=== PATIENT | male | born 1955 | race Caucasian/White ===

== ENCOUNTER 2025-06-28 17:40 | Emergency (ER) | payer BC, SELFPAY ==
[2025-06-28 17:52] VITALS: BP 138/85
[2025-06-28 18:30] LABS: Hematocrit 48.1 % (39.0-52.0); Hemoglobin 15.7 g/dL (13.0-18.0); Mean Corp Hgb Conc. 32.6 g/dL (33.0-37.0); Mean Corpuscular Volume 92.3 fL (80.0-94.0); Nucleated Red Blood Cells % 0 % (-); Platelet Count 142 10^3/uL (130-400); Red Cell Dist. Width 14.4 % (11.5-14.5)
[2025-06-28 18:48] LABS: ALT (SGPT) 23 U/L (0-50); AST (SGOT) 29 U/L (17-59); Albumin 3.9 g/dl (3.5-5.0); Alkaline Phosphatase 83 U/L (38-126); Blood Urea Nitrogen 24 mg/dl (9-20); Calcium 9.2 mg/dl (8.4-10.2); Carbon Dioxide 22 mmol/L (22-30); Chloride 103 mmol/L (98-107); Glucose 115 mg/dl (70-99); Potassium 4.3 mmol/L (3.5-5.1); Sodium 135 mmol/L (135-145); Total Protein 6.3 g/dl (6.3-8.2); eGFR 58.73
[2025-06-28 18:52] LABS: COVID-19 Antigen Negative (Negative)
[2025-06-28 19:58] VITALS: BP 145/84
[2025-06-28 20:00] VITALS: BP 139/71
[2025-06-28] MEDS: DUONEB 3 ML INH (20:32)
[2025-06-28] MEDS: DECADRON 10 MG PO (20:32)
[2025-06-28 21:00] VITALS: BP 135/76
--- NOTE | 2025-06-28 21:35 | ED.GENMED ---
History of Present Illness
General
Chief Complaint: Cough
Source: patient
Exam Limitations: none
Time Seen by Provider: 06/28/25 20:10
Nursing documentation reviewed up to this point in time: agreed with
History of Present Illness
History of Present Illness:
69-year-old male past medical history of hypertension diabetes presenting to the emergency department today with concerns of cough chills some shortness of breath over the past 3 days. Has had some nasal congestion as well. Denies any nausea
vomiting diarrhea. No chest pain. No ongoing shortness of breath.
Past History
Past History
ED Past Medical History: HTN, Hypercholesterolemia and NIDDM
ED Past Surgical History: None
Social History
Tobacco: Smoker
Review of Systems
Review of Systems
Allergies reviewed?: Yes
All Other Systems: ROS reviewed and negative except as documented in HPI and ROS
Phy Exam
Physical Exam
Physical Exam:
GENERAL: Alert , in no apparent distress
EYE: pupils equal and reactive
NECK: Supple, no significant adenopathy.
ENT: o/p clr, mmm.
CARDIAC: Regular rate and rhythm .
LUNGS: Expiratory wheeze diffusely
ABDOMEN: Soft, without focal tenderness, no r/g, no cvat
NEUROLOGICAL: Alert and oriented, no focal neuro deficits
SKIN: Warm and dry, skin intact.
MUSCULOSKELETAL: No edema, well perfused.
PSYCH: Normal and appropriate interaction.
Course
Orders/Labs/Results
Orders:
Orders
06/28/25 17:56
Electrocardiogram (*1) Urgent
Reason for Study: Other
Other Reason for Exam: Respiratory Distress
EKG- Treatment ONCE
CR Chest - 2 Views Urgent
Comment:
Reason For Exam: respiratory distress
06/28/25 18:18
COVID-19 Antigen Urgent
Source: Nasal Swab
Complete Blood Count/With Diff Urgent
Comprehensive Metabolic Panel Urgent
Influenza A+B Rapid Molecular Urgent
[facility]IZABETH Source: Nasal Swab
Specimen Description:
06/28/25 20:24
Dexamethasone [Decadron] 10 mg PO NOW STA
Ipratropium/Albuterol Sulfate [Duoneb] 3 ml INH R NOW ONE
Abnormal Lab Results
06/28/25
18:18
MCHC 32.6 L g/dL
(33.0-37.0)
MPV 10.5 H fL
(7.4-10.4)
Absolute Neuts (auto) 7.5 H 10^3/uL
(1.4-6.5)
Absolute Lymphs (auto) 0.5 L 10^3/uL
(1.2-3.4)
Absolute Monos (auto) 1.2 H 10^3/uL
(0.1-0.6)
Neutrophils % 80.3 H %
(42.2-75.2)
Lymphocytes % 5.3 L %
(20.5-51.1)
Monocytes % 13.2 H %
(1.7-9.3)
BUN 24 H mg/dl
(9-20)
Glucose 115 H mg/dl
(70-99)
Total Bilirubin 2.1 H mg/dl
(0.2-1.3)
06/28/25 18:18
06/28/25 18:18
Vital Signs
Initial and Last Documented VS:
Initial Vital Signs
Temp Pulse Resp BP Pulse Ox
99.7 F 120 20 138/85 95
06/28/25 17:52 06/28/25 17:52 06/28/25 17:52 06/28/25 17:52 06/28/25 17:52
Last Documented Vital Signs
Temp Pulse Resp BP Pulse Ox
99.7 F 104 16 135/76 92
06/28/25 17:52 06/28/25 21:30 06/28/25 21:30 06/28/25 21:00 06/28/25 21:37
MDM/Problems Addressed
MDM/Problems Addressed:
69-year-old male presenting to the emergency department today with concerns of cough and chills subjective fever at home over the past 2 days or so. On arrival mildly tachycardic low-grade temp. Heart rate improved without specific treatment heart
rate in the 90s during my assessment. Pulse ox in the mid 90s. Labs obtained without significant white count no emergent findings on labs. Chest x-ray without signs of pneumonia or acute abnormalities. EKG normal. Patient was given steroid as
well as inhaler with improvement symptom. He was walked in the department with pulse ox staying to the mid to high 90s. X-ray without evidence of pneumonia. Appears stable for discharge at this time.
*Pulse Oximetry
SaO2: 92
Oxygen Mode of Delivery: Room air
Patient hypoxic: no (94)
*Critical Care Note
Total Time (30-74mins, 75-104mins- exclusive of procedures): Not Applicable
ED Attending Note
-
Portions of this chart may have been created with voice recognition software.� Occasional wrong word or��sound alike� substitutions may have occurred due to the inherent limitations of voice recognition software.
Discharge Plan
Departure
Patient Disposition: Home (Routine Discharge)
Date of Disposition: 06/28/25
Time of Disposition: 21:55
Patient with high blood pressure during this ER visit?: No
Condition: Good
Covid-19: Not Applicable
Discharge Problem:
Acute bronchitis, Wheeze
Instructions: Viral Upper Respiratory Infection, Adult (DC)
Prescriptions:
New
prednisone 20 mg tablet
40 mg PO DAILY 4 Days Qty: 8 0RF
No Action
atorvastatin 10 MG tablet
10 mg PO DAILY
aspirin [Ecotrin Low Strength] 81 MG tablet,delayed release (DR/EC)
81 mg PO DAILY
coenzyme Q10 [Co Q-10] 30 MG capsule
30 mg PO DAILY
cholecalciferol (vitamin D3) [Vitamin D3] 1,000 UNIT capsule
1,000 unit PO DAILY
amlodipine-benazepril 1 CAPSULE capsule
1 cap PO DAILY
zoster vaccine live (PF) [Zostavax (PF)] 19,400 UNIT/0.65 ML suspension for reconstitution
19,400 unit SQ DAILY
sitagliptin phos-metformin [Janumet XR] 1 EACH tablet, ER multiphase 24 hr
1 ea PO BID
dulaglutide [Trulicity] 1.5 MG/0.5 ML pen injector
1.5 mg SQ DAILY
methylprednisolone [Medrol (Uriel)] 4 MG tablets,dose pack
4 tab PO . DIRECT Qty: 1 0RF
oxycodone-acetaminophen 5 MG/325 MG tablet
1 tab PO Q4HPRN PRN (Reason: pain) Qty: 8 0RF
Activity Restrictions/Additional Instructions:
You came to the emergency department today with concerns of upper respiratory symptoms. Here he had a reassuring assessment. You do appear to have a reactive airway to a likely viral syndrome. Please take the prescribed steroid and use your
inhaler at home. Return for any worsening, new or concerning symptoms.
Interventions
Interventions:
*Risk Screen - Suicide Last Done: 06/28/25 17:52
*General Assessment Last Done: 06/28/25 21:27
*Neglect/Abuse Screening Last Done: 06/28/25 17:52
*ED- Fall Risk Assessment Last Done: 06/28/25 17:52
*ED COVID-19 Vaccine History Last Done: 06/28/25 20:58
*ED Influenza Vaccine History Last Done: 06/28/25 20:58
ED- Pulmonary Assessment Last Done: 06/28/25 20:58
Discharge Date and Time
Print Language: CITIZEN OF [place]
[2025-06-28 22:00] VITALS: BP 128/67
== END 2025-06-28 22:08 | disposition home or self-care (01) ==
LOC: EMR 17:40
PROVIDERS: Emergency Medicine; EMERGENCY PHYSICIAN Emergency Medicine; FAMILY PHYSICIAN Internal Medicine
DX: J20.9 Acute bronchitis, unspecified (principal); E11.9 Type 2 diabetes mellitus without complications; I10 Essential (primary) hypertension; E78.00 Pure hypercholesterolemia, unspecified; F17.200 Nicotine dependence, unspecified, uncomplicated; Z79.85 Long-term (current) use of injectable non-insulin antidiabetic drugs; Z79.84 Long term (current) use of oral hypoglycemic drugs; Z79.82 Long term (current) use of aspirin
CPT/HCPCS: 99284; 94640; 71046; 80053; 85025; 87502; 87811; 93005

== ENCOUNTER 2025-07-02 07:36 | Emergency (ER) | payer BC, SELFPAY ==
[2025-07-02 07:37] VITALS: BP 181/99
--- NOTE | 2025-07-02 07:49 | ED.GENMED ---
History of Present Illness
General
Chief Complaint: Breathing Problem
Time Seen by Provider: 07/02/25 07:41
History of Present Illness
History of Present Illness:
69 yo male w/ hx fo HTN, HLD and prior tobacco use presents to the Emergency Department for evaluation of persistent dry cough, night sweats and chills x 5 days. Was seen here for these symptoms 4d ago and had labs/CXR that were unremarkable, Dx w/
bronchitis and given prednisone. No improvement despite compliance w/ meds. No chest pain. SOB only with exertion. No leg swelling or calf cramping. No ill contacts. Spouse requesting UA as well due to chronic urinary urgency.
Past History
Past History
ED Past Medical History: HTN, Hypercholesterolemia and NIDDM
ED Past Surgical History: None
Social History
Tobacco: Smoker
Review of Systems
Review of Systems
Allergies reviewed?: Yes
All Other Systems: ROS reviewed and negative except as documented in HPI and ROS
Phy Exam
Physical Exam
Physical Exam:
GEN: Well appearing, NAD, WDWN
Eyes: PERRLA, EOMs intact, no scleral icterus
HENT: NCAT, oral mucosa moist
Lungs: CTAB, no wheezes, rales, rhonchi, normal chest wall excursion
Cardiac: Mildly tachycardic, regular
Abdomen: S, NT, ND, NABS, no masses or hepatosplenomegaly
Neuro: AO x 3
MSK: No gross deformity or ecchymosis. No edema. No digital clubbing
Skin: No rashes, petechiae. Normal color, no pallor or jaundice.
Psych: Calm, cooperative, proper hygiene
Scores
Heart Failure Risk
Heart Failure Risk Score: Not Applicable
Course
Orders/Labs/Results
Orders:
Orders
07/02/25 07:47
CR Chest - 2 Views Urgent
Comment:
Reason For Exam: cough/fever
07/02/25 07:56
Complete Blood Count/With Diff Urgent
Comprehensive Metabolic Panel Urgent
Lactic Acid Urgent
Monotest Urgent
Comment: ADD ON
Urinalysis Reflex To Culture Urgent
Date Specimen was Collected: 07/02/25
Time Specimen was Collected: 07:52
Urine Microscopic Reflex Cult Urgent
Blood Culture Q30M
ELIZABETH Source: Blood/Venous
Specimen Description:
07/02/25 09:13
US Abdomen Complete/Upper Urgent
Comment:
Reason For Exam: transaminitis
07/02/25 09:14
Add On- LAB Urgent
Tests Added?: monotest
07/02/25 10:49
Blood Culture Q30M
ELIZABETH Source: Blood/Venous
Specimen Description:
Abnormal Lab Results
07/02/25
07:56
RDW 14.6 H %
(11.5-14.5)
MPV 10.9 H fL
(7.4-10.4)
Abs Immat Gran (auto) 0.1 H 10^3/uL
(0-0.05)
Absolute Lymphs (auto) 0.3 L 10^3/uL
(1.2-3.4)
Absolute Monos (auto) 0.7 H 10^3/uL
(0.1-0.6)
Immature Gran % 0.9 H %
(0-0.5)
Neutrophils % 83.0 H %
(42.2-75.2)
Lymphocytes % 3.9 L %
(20.5-51.1)
Monocytes % 10.7 H %
(1.7-9.3)
BUN 29 H mg/dl
(9-20)
Total Bilirubin 1.4 H mg/dl
(0.2-1.3)
AST 128 H U/L
(17-59)
ALT 157 H U/L
(0-50)
Alkaline Phosphatase 170 H U/L
(38-126)
Total Protein 5.9 L g/dl
(6.3-8.2)
Ur Occult Blood Reflex 1+ A
(Negative)
Urine Bacteria (Reflex) Few A
(Negative)
Urine Glucose 4+ A
(Negative)
Urine Albumin (Reflex) 2+ A
(Neg - Trace)
07/02/25 07:56
07/02/25 07:56
Vital Signs
Initial and Last Documented VS:
Initial Vital Signs
Temp Pulse Resp BP Pulse Ox
98.9 F 114 20 181/99 94
07/02/25 07:37 07/02/25 07:37 07/02/25 07:37 07/02/25 07:37 07/02/25 07:37
Last Documented Vital Signs
Temp Pulse Resp BP Pulse Ox
98.6 F 76 20 146/81 98
07/02/25 08:14 07/02/25 08:14 07/02/25 08:14 07/02/25 08:14 07/02/25 08:14
MDM/Problems Addressed
MDM/Problems Addressed:
Labs were obtained and when compared to prior ER visit significant transaminitis was noted. Patient endorses taking 1 or 2 doses of acetaminophen daily for fevers but not in excess. Denies any alcohol use. Ultrasound obtained which shows hepatic
steatosis which in conjunction with likely viral syndrome is likely causing his acute transaminitis. However given the reported rigors we will treat this as a potential atypical pneumonia with dry coughing associated with myalgias. Blood cultures
pending. Given the infectious signs and symptoms and lack of chest pain, doubt PE. Will treat with azithromycin, vital stable for discharge home
*Pulse Oximetry
SaO2: 94
Oxygen Mode of Delivery: Room air
Patient hypoxic: no
*Critical Care Note
Total Time (30-74mins, 75-104mins- exclusive of procedures): Not Applicable
ED Attending Note
-
Portions of this chart may have been created with voice recognition software.� Occasional wrong word or��sound alike� substitutions may have occurred due to the inherent limitations of voice recognition software.
Discharge Plan
Departure
Patient Disposition: Home (Routine Discharge)
Date of Disposition: 07/02/25
Time of Disposition: 10:42
Patient with high blood pressure during this ER visit?: No
Discharge Problem:
Mycoplasma pneumonia
Instructions: Pneumonia in adults (DC)
Prescriptions:
New
azithromycin [Zithromax] 250 mg tablet
250 mg PO DAILY Qty: 6 0RF
Rx Instructions:
500mg PO qd x1 then 250mg PO qd x 4d
No Action
atorvastatin 10 MG tablet
10 mg PO DAILY
aspirin [Ecotrin Low Strength] 81 MG tablet,delayed release (DR/EC)
81 mg PO DAILY
coenzyme Q10 [Co Q-10] 30 MG capsule
30 mg PO DAILY
cholecalciferol (vitamin D3) [Vitamin D3] 1,000 UNIT capsule
1,000 unit PO DAILY
amlodipine-benazepril 1 CAPSULE capsule
1 cap PO DAILY
zoster vaccine live (PF) [Zostavax (PF)] 19,400 UNIT/0.65 ML suspension for reconstitution
19,400 unit SQ DAILY
sitagliptin phos-metformin [Janumet XR] 1 EACH tablet, ER multiphase 24 hr
1 ea PO BID
dulaglutide [Trulicity] 1.5 MG/0.5 ML pen injector
1.5 mg SQ DAILY
methylprednisolone [Medrol (Uriel)] 4 MG tablets,dose pack
4 tab PO . DIRECT Qty: 1 0RF
oxycodone-acetaminophen 5 MG/325 MG tablet
1 tab PO Q4HPRN PRN (Reason: pain) Qty: 8 0RF
prednisone 20 mg tablet
40 mg PO DAILY 4 Days Qty: 8 0RF
Activity Restrictions/Additional Instructions:
Have your liver enzymes rechecked within 1 month by your primary doctor
Interventions
Interventions:
*Risk Screen - Suicide Last Done: 07/02/25 07:37
*General Assessment Last Done: 07/02/25 07:37
*Neglect/Abuse Screening Last Done: 07/02/25 08:14
*ED- Fall Risk Assessment Last Done: 07/02/25 08:14
*ED COVID-19 Vaccine History Last Done: 07/02/25 08:14
*ED Influenza Vaccine History Last Done: 07/02/25 08:14
*Nursing Disposition Last Done: 07/02/25 10:53
ED- Cardiac Assessment Last Done: 07/02/25 08:14
ED- Pulmonary Assessment Last Done: 07/02/25 08:14
Discharge Date and Time
Discharge Date/Time: 07/02/25 11:00
Print Language: CITIZEN OF [place]
[2025-07-02 08:05] VITALS: BMI 29.0
[2025-07-02 08:14] VITALS: BP 146/81
[2025-07-02 08:18] LABS: Urine Character Clear (Clear)
[2025-07-02 08:24] LABS: Urine Squamous Cell 0-2 /LPF (Few)
[2025-07-02 08:25] LABS: Urine Red Blood Cell 0-2 /HPF (0-2)
[2025-07-02 08:32] LABS: Hematocrit 47.8 % (39.0-52.0); Hemoglobin 15.8 g/dL (13.0-18.0); Mean Corp Hgb Conc. 33.1 g/dL (33.0-37.0); Mean Corpuscular Volume 92.1 fL (80.0-94.0); Nucleated Red Blood Cells % 0 % (-); Platelet Count 145 10^3/uL (130-400); Red Cell Dist. Width 14.6 % (11.5-14.5)
[2025-07-02 08:36] LABS: Albumin 3.5 g/dl (3.5-5.0); Carbon Dioxide 26 mmol/L (22-30); Chloride 106 mmol/L (98-107); Estimated Creatinine Clearance 58 ml/min; Total Protein 5.9 g/dl (6.3-8.2); eGFR > 60.00
[2025-07-02 09:05] LABS: ALT (SGPT) 157 U/L (0-50); AST (SGOT) 128 U/L (17-59); Alkaline Phosphatase 170 U/L (38-126); Blood Urea Nitrogen 29 mg/dl (9-20); Calcium 9.4 mg/dl (8.4-10.2); Glucose 92 mg/dl (70-99); Potassium 4.3 mmol/L (3.5-5.1); Sodium 138 mmol/L (135-145)
== END 2025-07-02 11:00 | disposition home or self-care (01) ==
LOC: EMR 07:36
PROVIDERS: Physician Assistant; EMERGENCY PHYSICIAN Emergency Medicine; FAMILY PHYSICIAN Internal Medicine
DX: J15.7 Pneumonia due to Mycoplasma pneumoniae (principal); K76.0 Fatty (change of) liver, not elsewhere classified; E11.9 Type 2 diabetes mellitus without complications; I10 Essential (primary) hypertension; E78.00 Pure hypercholesterolemia, unspecified; F17.200 Nicotine dependence, unspecified, uncomplicated; Z79.82 Long term (current) use of aspirin; Z79.84 Long term (current) use of oral hypoglycemic drugs; Z79.85 Long-term (current) use of injectable non-insulin antidiabetic drugs
CPT/HCPCS: 99284; 71046; 76700; 80053; 81003; 81015; 83605; 85025; 86308; 87040